=== PATIENT | female | born 1965 | race Caucasian/White ===

== ENCOUNTER 2025-01-24 10:13 | Inpatient (IN) ==
[2025-01-24] MEDS: SODIUM CHLORIDE 0.9% 1,000 ML IV ONE ×2 (10:58→12:59)
[2025-01-24] MEDS: FAMOTIDINE 20MG IV PUSH 20 MG/5 ML SYR IV STA (10:58)
[2025-01-24] MEDS: METOCLOPRAMIDE HCL INJ 5 MG/ML 2 ML VIAL IV ONE (11:06)
[2025-01-24] MEDS: PANTOprazole 40 MG/10 ML SYR IV ONE (11:07)
[2025-01-24] MEDS: ACETAMINOPHEN 1,000 MG/100 ML VIAL IV STA (11:09)
[2025-01-24 11:24] LABS: Appearance Urine Cloudy (Clear); Glucose Urine UA Trace (Negative)
[2025-01-24 11:31] LABS: Alanine Aminotransferase 83 U/L (7-52); Albumin Globulin Ratio 1.1 (0.9-2); Alkaline Phosphatase 103 U/L (34-104); Anion Gap 15 (3-11); Bilirubin,Total 4.4 mg/dl (0.2-1.0); Blood Urea Nitrogen 24 mg/dl (6-23); Calcium 9.1 mg/dl (8.6-10.3); Carbon Dioxide 23 mmol/L (21-32); Chloride 95 mmol/L (98-107); Globulin 3.2 gm/dl (2.5-4.0); Glucose 173 mg/dl (70-99(Fasting)); Lipase 24 U/L (11-82); Magnesium 1.7 mg/dl (1.7-2.4); Potassium 3.2 mmol/L (3.5-5.1); Sodium 133 mmol/L (136-145); Total Protein 6.6 gm/dl (6.0-8.3)
[2025-01-24 11:38] LABS: Hematocrit (blood only) 44.5 % (37.0-47.0); Hemoglobin 15.7 g/dl (12.0-16.0); Mean Corpuscular Hemoglobin 34.4 pg (25.0-34.0); Mean Corpuscular Volume 97.6 fL (80.0-100.0); Platelet Count 77 K/uL (130-400); RDW Standard Deviation 49.3 fL (36.4-46.3); Red Blood Count 4.56 M/uL (4.20-5.40); White Blood Count 6.62 K/ul (4.8-10.8)
[2025-01-24 11:40] LABS: INR 1.2 (0.9-1.1); Prothrombin Time 12.4 Seconds (9.0-12.0)
[2025-01-24 11:52] LABS: Immature Granulocytes # (auto) 0.11 K/uL (0.01-0.20); Immature Granulocytes % (auto) 1.7 %; Toxic Vacuolation 3+
[2025-01-24 11:57] LABS: Anaplasmosis Smear(Rpt to DOH) Pos for Anaplasma
[2025-01-24] MEDS: OPTIRAY 320 100ml IV ONE (12:00)
--- NOTE | 2025-01-24 12:28 | Emergency Department Note ---
Impression & Plan Nausea & vomiting, Abdominal pain, Diarrhea, Anaplasmosis ED Provider Note ED Provider Note NAME: CHEYENNE BOND AGE:59 SEX: Female : 1965 ARRIVES VIA: private vehicle INFORMANT: Patient ED PROVIDER(s): Kati Louis DO CHIEF COMPLAINT: nausea, vomiting, diarrhea, abdominal pain HPI: This is a 59-year-old female who presents emerged from due to concern for nausea, vomiting, diarrhea, and abdominal pain which began on Monday. Patient states she has been trying to take small sips of water but after about an hour she will vomit up the water and phlegm from her stomach. She states she has generalized abdominal pain. She states she is having 2 or 3 episodes of diarrhea daily. She states she had tried using Pepto-Bismol and since then her stools have been black. No overt blood noted. She denies any recent known sick contacts, recent travel, change in diet, or change in medications. Patient does have a prior history of significant diverticulitis which required partial colectomy. PAST MEDICAL HISTORY:See Below PAST SURGICAL HISTORY:See Below FAMILY HISTORY:See Below SOCIAL HISTORY:See Below HOME MEDICATIONS:See Below ALLERGIES:See Below VITALS:See Below PHYSICAL EXAMINATION: GENERAL: alert, unwell appearing, well nourished, no distress, non-toxic EYE EXAM: normal conjunctiva, PERRL and EOM's grossly intact OROPHARYNX: no exudate, no erythema, lips, buccal mucosa, and tongue normal and mucous membranes are dry. NECK: supple, no nuchal rigidity, no adenopathy, non-tender LUNGS: Clear to auscultation. Normal chest wall mechanics, no w/r/r HEART: no murmurs, S1 normal and S2 normal ABDOMEN: abdomen soft, generalized discomfort with palpation, normo-active bowel sounds, no masses, no rebound or guarding. SKIN: no rashes, petechiae, orbruising UPPER EXTREMITIES: upper extremities are grossly normal. FROM, nml pulses b/l. LOWER EXTREMITIES: No pitting edema. FROM, nml pulses b/l. NEURO EXAM: Normal sensorium, cranial nerves II-XII grossly intact, normal speech, no facial droop,nogross weakness of arms, no gross weakness of legs. Gross sensation intact. No ataxia. Vital Signs: reviewed and remarkable Differential Diagnosis: Viral syndrome, foodborne illness, medication ADR, dehydration, electrolyte abnormality, SBO, colitis, mesenteric ischemia, gastroparesis, perforation, DKA, as well as others were considered MEDICAL DECISION MAKING: This is a 59-year-old female presents emerged department after several days of abdominal pain, nausea, vomiting, and diarrhea. She was concern for dehydration as well as etiology of her symptoms. She was afebrile and hemodynamically stable on arrival did not feel markedly clinically dehydrated. Labs drawn and sent, IV established, EKG performed at bedside interpreted by me and patient monitored on telemetry. Patient started on IV fluids additionally. Patient noted to have elevated lactic acid, although this was downtrending on repeat after IV fluids. Due to concern for comorbid conditions and persistent symptoms as well as abnormal labs, she was sent for CT of the abdomen pelvis additionally. Patient noted to have mild diverticulitis. Of note patient also positive for anaplasmosis. Patient started on IV antibiotics for both. Case discussed with hospitalist team for additional evaluation and management. Patient did report feeling improved following IV fluids, IV tylenol, IV Reglan, IV Pepcid, IV pantoprazole. She was given potassium and magnesium repletion additionally as her levels were low normal. Stool cultures added as a precaution and were pending at the time of discussion with the hospitalist team. Consultation(s): 1350: Discussed with Dr. Soto, [place] hospitalist team, for additional evaluation and mgmt. ER Treatment Provided: See below Diagnostics Interpreted By Me: -ECG: sinus tachycardia at 123, nml axis, nml intervals, no acute ST/T wave changes -Cardiac Monitoring: An order was placed for continuous cardiac monitoring. The monitor shows a rate of 108 with sinus tachycardia rhythm. -Laboratory studies: As stated above and show below. -Imaging studies: ct a/p - no sbo, no perf Triage Nursing Note Reviewed Prior/Outside Records Reviewed Past Med/Surg History Problem List (Updated 01/25/25 @ 13:02 by Jero Meza DO) Hypokalemia Anaplasmosis (Acute) Diarrhea (Acute) Abdominal pain (Acute) Nausea & vomiting (Acute) Nondisplaced fracture of proximal end of fibula (06/04/24) Acute to subacute nondisplaced proximal left fibular fracture from a fall on a cat toy per the provider note dated 06/10/24 Hyperlipidemia Oropharyngeal mass Smoking greater than 40 pack years Abdominal pain Diarrhea DM2 (diabetes mellitus, type 2) Lymphocytic colitis Hypertension Breast cancer, right Initial diagnosis 1998 Medical History Abnormal mammogram of right breast Osteopenia Repeat DEXA December 2024 History of breast cancer dx'd 1998. surgery + radiation History of migraine headaches Borderline hyperlipidemia HTN (hypertension) History of diverticulitis Surgical History History of surgery on upper extremity LUE x 2 History of lumpectomy Rt History of bowel resection History of colonoscopy Last Colonoscopy 09/07/22 History of delivery Family History Mother Alzheimer disease Father Prostate cancer Heart disease Aunt Breast cancer Other No family history of adverse response to anesthesia No family history of bleeding disorder Denies family history of Ovarian cancer Myocardial infarction Lung cancer Colorectal cancer Social History Smoking Status: Current every day smoker Tobacco Type: Cigarettes Age Started Using Tobacco: 17; packs per day: 0.5; Cigarettes Per Day: 10; Second Hand Exposure: No; Do You Dip or Chew Tobacco: No; Hx Alcohol Use: Yes Alcohol type: hard liquor Alcohol Intake Frequency Comment: daily Hx Substance Use: Yes Prescribed Medications: Marijuana Last Used Substance: Days (ago) Preferred Language: Turkish Communication Ability: Effective Visual Impairment: Diminished Hearing Ability: Normal Advanced Practice Nurse Psychotherapist Required: No Beliefs That Will Affect Care: None marital status: Single Current Living Situation: Alone current occupational status: employed How many Children do You have: 1 Feels Safe at Home: Yes Safety Concerns: Feels Safe At This Time Childhood Exposure to Second-Hand Smoke: Yes Diet: regular caffeine: No Dental Care, Regularly: Yes Physical Activity Frequency: Does not Exercise Seatbelt Use: always Sunscreen Use: Yes Assistive Devices: Glasses Allergies Allergies Allergy/AdvReac Type Severity Reaction Status Date / Time anti nausea medication Allergy "made me Uncoded 09/27/24 09:50 more sick" dry heaves, vomiting Home Meds Home Medications Medication Instructions Recorded Confirmed amoxicillin 500 mg capsule 2,000 mg PO ONCE PRN dental appt 07/28/22 01/24/25 Primal Mind Fuel 1 dose PO QAM 09/02/22 01/24/25 calcium 600 mg (as 1 tab PO QAM 09/02/22 01/24/25 carbonate)-vitamin D3 5 mcg (200 unit) tablet cholecalciferol (vitamin D3) 50 2,000 unit PO DAILY 10/25/23 01/24/25 mcg (2,000 unit) capsule hydrochlorothiazide 25 mg tablet 25 mg PO DAILY 01/24/25 01/24/25 Previous Rx's Medication Instructions Recorded beta carotene 30 mg capsule 30 mg PO DAILY #30 caps 10/20/22 potassium citrate 99 mg capsule 99 mg PO DAILY #30 caps 10/20/22 vitamin E (dl, acetate) 180 mg 360 mg (2 x 180 mg (400 unit)) PO 10/20/22 (400 unit) capsule DAILY #30 caps albuterol sulfate 90 mcg/actuation 2 puff inhalation QID PRN 07/22/24 aerosol inhaler shortness of breath or wheezing #8.5 grams budesonide 3 mg 9 mg (3 x 3 mg) PO DAILY #90 ea 12/02/24 capsule,delayed,extended release Results & Data (ED) Vital Signs Vital Signs - 24 hr 01/24/25 10:17 01/24/25 10:42 01/24/25 10:54 Temperature 36.3 C L Temperature Source Temporal Artery Scan Pulse Rate 128 H 128 H 126 H Pulse Rate [Apical] Pulse Rate from SpO2 Sensor 128 H Respiratory Rate 16 19 20 Respiratory Effort / Characteristics Non-Labored Spontaneous Respiratory Depth Normal Respiratory Pattern Blood Pressure 113/76 Blood Pressure [Right Arm] Blood Pressure Mean 88 Blood Pressure Mean [Right Arm] Blood Pressure Position [Right Arm] Pulse Oximetry 100 97 Oxygen Delivery Method Room Air Room Air Sepsis Recent Fever Within 48 Hours No Sepsis New/Unexplained Change in Mental Status No Sepsis Action Taken by Nursing No Action Required 01/24/25 11:12 01/24/25 11:14 01/24/25 11:19 Temperature Temperature Source Pulse Rate 119 H Pulse Rate [Apical] Pulse Rate from SpO2 Sensor Respiratory Rate Respiratory Effort / Characteristics Respiratory Depth Respiratory Pattern Blood Pressure 114/74 Blood Pressure [Right Arm] Blood Pressure Mean 98 Blood Pressure Mean [Right Arm] Blood Pressure Position [Right Arm] Pulse Oximetry Oxygen Delivery Method Room Air Sepsis Recent Fever Within 48 Hours Sepsis New/Unexplained Change in Mental Status Sepsis Action Taken by Nursing 01/24/25 11:24 01/24/25 11:30 01/24/25 12:27 Temperature Temperature Source Pulse Rate 118 H 120 H 108 H Pulse Rate [Apical] Pulse Rate from SpO2 Sensor Respiratory Rate 20 27 H 26 H Respiratory Effort / Characteristics Respiratory Depth Respiratory Pattern Blood Pressure Blood Pressure [Right Arm] Blood Pressure Mean Blood Pressure Mean [Right Arm] Blood Pressure Position [Right Arm] Pulse Oximetry Oxygen Delivery Method Sepsis Recent Fever Within 48 Hours Sepsis New/Unexplained Change in Mental Status Sepsis Action Taken by Nursing 01/24/25 12:33 01/24/25 12:38 01/24/25 13:00 Temperature Temperature Source Pulse Rate 108 H 109 H Pulse Rate [Apical] 108 H Pulse Rate from SpO2 Sensor 109 H Respiratory Rate 22 15 21 Respiratory Effort / Characteristics Non-Labored Spontaneous Respiratory Depth Normal Respiratory Pattern Regular Blood Pressure Blood Pressure [Right Arm] 131/71 Blood Pressure Mean Blood Pressure Mean [Right Arm] 91 Blood Pressure Position [Right Arm] Semi-fowlers Pulse Oximetry 98 98 Oxygen Delivery Method Room Air Room Air Sepsis Recent Fever Within 48 Hours Sepsis New/Unexplained Change in Mental Status Sepsis Action Taken by Nursing 01/24/25 13:00 01/24/25 13:33 01/24/25 13:48 Temperature Temperature Source Pulse Rate 111 H 106 H Pulse Rate [Apical] Pulse Rate from SpO2 Sensor Respiratory Rate 19 25 H Respiratory Effort / Characteristics Respiratory Depth Respiratory Pattern Blood Pressure 153/75 H Blood Pressure [Right Arm] Blood Pressure Mean 120 Blood Pressure Mean [Right Arm] Blood Pressure Position [Right Arm] Pulse Oximetry Oxygen Delivery Method Sepsis Recent Fever Within 48 Hours Sepsis New/Unexplained Change in Mental Status Sepsis Action Taken by Nursing 01/24/25 14:05 01/24/25 14:06 Temperature Temperature Source Pulse Rate 106 H Pulse Rate [Apical] Pulse Rate from SpO2 Sensor 108 H Respiratory Rate 20 Respiratory Effort / Characteristics Respiratory Depth Respiratory Pattern Blood Pressure 148/102 H Blood Pressure [Right Arm] Blood Pressure Mean 133 Blood Pressure Mean [Right Arm] Blood Pressure Position [Right Arm] Pulse Oximetry 97 Oxygen Delivery Method Room Air Sepsis Recent Fever Within 48 Hours Sepsis New/Unexplained Change in Mental Status Sepsis Action Taken by Nursing Laboratory Data 01/25/25 06:34 01/25/25 06:34 Lab Results 01/24/25 01/24/25 01/24/25 Range/Units 10:55 12:48 14:28 WBC 6.62 (4.8-10.8) K/ul RBC 4.56 (4.20-5.40) M/uL Hgb 15.7 (12.0-16.0) g/dl Hct 44.5 (37.0-47.0) % MCV 97.6 (80.0-100.0) fL MCH 34.4 H (25.0-34.0) pg MCHC 35.3 (32.0-36.0) g/dL RDW Std Deviation 49.3 H (36.4-46.3) fL RDW Coeff of Bindu 13.6 (11.5-14.5) % Plt Count 77 L (130-400) K/uL MPV 11.1 (9.4-12.4) fL Immature Gran % (Auto) 1.7 % Neut % (Auto) 90.9 % Lymph % (Auto) 3.5 % [place] % (Auto) 2.6 % Eos % (Auto) 0.2 % Baso % (Auto) 1.1 % Neut # (Auto) 6.03 (1.40-6.50) K/uL Lymph # (Auto) 0.23 L (1.20-3.40) K/uL [place] # (Auto) 0.17 (0.11-0.59) K/uL Eos # (Auto) 0.01 (0.00-0.50) K/uL Baso # (Auto) 0.07 (0.00-0.20) K/uL Immature Gran # (Auto) 0.11 (0.01-0.20) K/uL Toxic Vacuolation 3+ PT 12.4 H (9.0-12.0) Seconds INR 1.2 H (0.9-1.1) Sodium 133 L 131 L (136-145) mmol/L Potassium 3.2 L 3.4 L (3.5-5.1) mmol/L Chloride 95 L 100 (98-107) mmol/L Carbon Dioxide 23 21 (21-32) mmol/L Anion Gap 15 H 10 (3-11) BUN 24 H 19 (6-23) mg/dl Creatinine 1.10 0.73 D (0.6-1.2) mg/dl Est Cr Clr Drug Dosing Not Reportable 73.2 eGFR 57.52 94.09 BUN/Creatinine Ratio 21.8 H 26.0 H (10-20) Glucose 173 H 195 H (70-99(Fasting)) mg/dl Lactate 3.6 H* 2.2 H* (0.4-2.0) mmol/L Calcium 9.1 7.6 L (8.6-10.3) mg/dl Magnesium 1.7 (1.7-2.4) mg/dl Total Bilirubin 4.4 H 3.6 H (0.2-1.0) mg/dl AST 115 H 89 H (13-39) U/L ALT 83 H 65 H (7-52) U/L Alkaline Phosphatase 103 75 (34-104) U/L Total Protein 6.6 5.3 L (6.0-8.3) gm/dl Albumin 3.4 3.1 L (3.4-5.0) gm/dl Globulin 3.2 2.2 L (2.5-4.0) gm/dl Albumin/Globulin Ratio 1.1 1.4 (0.9-2) Lipase 24 (11-82) U/L Urine Color Maia Urine Appearance Cloudy A (Clear) Urine pH 5.0 (4.5-7.5) Ur Specific [place] 1.025 (1.000-1.030) Urine Protein 2+ H (Negative) Urine Glucose (UA) Trace H (Negative) Urine Ketones 1+ H (Negative) Urine Blood Negative (Negative) Urine Nitrite Negative (Negative) Urine Bilirubin 3+ H (Negative) Urine Urobilinogen Positive H (Negative) Ur Leukocyte Esterase Negative (Negative) Urine RBC 0-2 (0-2) /hpf Urine WBC 0-5 (0-5) /hpf Ur Epithelial Cells 11-20 H (0-2) /hpf Amorphous Sediment Present A (None Prsent) Urine Bacteria 1+ H (None Seen) Urine Comment Anaplasma Smear See Comment A Anaplasma Comment Pos for Anaplasma Administered Medications Acetaminophen (Acetaminophen 325 Mg Tab) 650 mg PO Q4H PRN PRN Reason: pain/fever Stop: 02/23/25 15:32 Last Admin: 01/25/25 12:50 Dose: 650 mg Documented By: Admin: 01/24/25 23:58 Dose: 650 mg Documented By: TELLO Budesonide (Budesonide Ec 3 Mg Cap) 9 mg PO DAILY BRADY Stop: 02/24/25 08:59 Last Admin: 01/25/25 08:23 Dose: 9 mg Documented By: TIERNEY Calcium/Vitamin D (Calcium 600mg + Vit D 400 Iu Tab) 1 tab PO QAM BRADY Stop: 02/24/25 08:59 Last Admin: 01/25/25 08:23 Dose: 1 tab Documented By: TIERNEY Lactated Ringer's (Lr) 1,000 mls @ 125 mls/hr IV .Q8H BRADY Stop: 01/27/25 15:32 Last Admin: 01/25/25 16:13 Dose: 125 mls/hr Documented By: Infusion: 01/25/25 16:10 Dose: Infused Documented By: Admin: 01/25/25 08:10 Dose: 125 mls/hr Documented By: Infusion: 01/25/25 07:58 Dose: Infused Documented By: Admin: 01/24/25 23:58 Dose: 125 mls/hr Documented By: Infusion: 01/24/25 23:54 Dose: Infused Documented By: Admin: 01/24/25 15:54 Dose: 125 mls/hr Documented By: JHONATAN Famotidine (Pepcid 20mg Iv Push) 20 mg in 5 mls @ 2.5 mls/min IV Q12H BRADY Stop: 02/23/25 22:59 Last Admin: 01/25/25 10:30 Dose: 2.5 mls/min Documented By: Admin: 01/24/25 22:47 Dose: 2.5 mls/min Documented By: TELLO Polyethylene Glycol (Polyethylene (Miralax) 17 Gm Pack) 17 gm PO DAILY BRADY Stop: 02/24/25 11:44 Last Admin: 01/25/25 12:55 Dose: 17 gm Documented By: TIERNEY Vitamin D (Cholecalciferol 25 Mcg (1000 Units) Tab) 50 mcg PO DAILY BRADY Stop: 02/24/25 08:59 Last Admin: 01/25/25 08:23 Dose: 50 mcg Documented By: RRAlisha Discontinued Medications Sodium Chloride (Nss) 1,000 mls @ 999 mls/hr IV .Q1H1M ONE Stop: 01/24/25 11:31 Last Infusion: 01/24/25 12:39 Dose: Infused Documented By: Admin: 01/24/25 10:58 Dose: 999 mls/hr Documented By: JEWEL Famotidine (Pepcid 20mg Iv Push) 20 mg in 5 mls @ 2.5 mls/min IV NOW STA Stop: 01/24/25 10:32 Last Admin: 01/24/25 10:58 Dose: 2.5 mls/min Documented By: JEWEL Pantoprazole Sodium (Protonix) 40 mg in 10 mls @ 5 mls/min IV NOW ONE Stop: 01/24/25 11:01 Last Admin: 01/24/25 11:07 Dose: 5 mls/min Documented By: JEWEL Acetaminophen (Ofirmev) 1,000 mg in 100 mls @ 400 mls/hr IV NOW STA Stop: 01/24/25 11:14 Last Infusion: 01/24/25 12:04 Dose: Infused Documented By: Admin: 01/24/25 11:09 Dose: 400 mls/hr Documented By: JEWEL Sodium Chloride (Nss) 1,000 mls @ 999 mls/hr IV .Q1H1M ONE Stop: 01/24/25 13:23 Last Infusion: 01/24/25 14:08 Dose: Infused Documented By: Admin: 01/24/25 12:59 Dose: 999 mls/hr Documented By: JEWEL Ampicillin Sodium/Sulbactam Sodium (Unasyn) 3,000 mg in 100 mls @ 200 mls/hr IV NOW STA Stop: 01/24/25 13:18 Last Infusion: 01/24/25 15:17 Dose: Infused Documented By: Admin: 01/24/25 14:42 Dose: 200 mls/hr Documented By: JEWEL Doxycycline Hyclate 100 mg/ (Dextrose) 100 mls @ 50 mls/hr IV NOW STA Stop: 01/24/25 14:52 Last Infusion: 01/24/25 16:59 Dose: Infused Documented By: Infusion: 01/24/25 15:56 Dose: Infused Documented By: Admin: 01/24/25 14:49 Dose: 50 mls/hr Documented By: JEWEL Magnesium Sulfate/Dextrose (Magnesium Sulfate / D5w) 1 gm in 100 mls @ 100 mls/hr IV NOW STA Stop: 01/24/25 14:09 Last Infusion: 01/24/25 14:30 Dose: Infused Documented By: Admin: 01/24/25 13:30 Dose: 100 mls/hr Documented By: JEWEL Sodium Chloride (Nss) 1,000 mls @ 125 mls/hr IV .Q8H BRADY Stop: 01/27/25 14:14 Last Infusion: 01/24/25 16:03 Dose: Infused Documented By: Admin: 01/24/25 14:39 Dose: 125 mls/hr Documented By: JEWEL Doxycycline Hyclate 100 mg/ (Dextrose) 100 mls @ 50 mls/hr IV BID BRADY Stop: 02/07/25 20:59 Last Infusion: 01/25/25 10:23 Dose: Infused Documented By: Admin: 01/25/25 08:22 Dose: 50 mls/hr Documented By: Infusion: 01/24/25 22:47 Dose: Infused Documented By: Admin: 01/24/25 20:49 Dose: 50 mls/hr Documented By: TELLO Ioversol (Optiray 320 100ml) 94 ml IV ONCE ONE Stop: 01/24/25 11:59 Last Admin: 01/24/25 12:00 Dose: 94 ml Documented By: MOIRA Metoclopramide HCl (Metoclopramide Hcl Inj 5 Mg/Ml 2 Ml Vial) 5 mg IV ONE ONE Stop: 01/24/25 11:01 Last Admin: 01/24/25 11:06 Dose: 5 mg Documented By: JEWEL Potassium Chloride (Potassium Chloride Crtab 20 Meq Tabcr) 40 meq PO NOW STA Stop: 01/24/25 13:11 Last Admin: 01/24/25 13:28 Dose: 40 meq Documented By: JEWEL Potassium Chloride (Potassium Chloride 10 Meq Tabcr) 40 meq PO NOW STA Stop: 01/25/25 07:38 Last Admin: 01/25/25 09:10 Dose: 40 meq Documented By: TIERNEY Imaging Data Radiologist's Impression: Abdomen/Pelvis CT 01/24/25 11:36 HISTORY: Abdominal pain. Back pain. Weakness, nausea, and vomiting. TECHNIQUE: Helical CT imaging of the abdomen and pelvis was performed with contrast. Images are presented in axial, sagittal, and coronal reformats. COMPARISON: CT of the abdomen pelvis with contrast dated 12/28/2018. FINDINGS: Lung Bases/Inferior Mediastinum: Mild atelectasis involving the lingula. Lung bases are otherwise clear. Liver: Mild hepatic steatosis.Mild hepatomegaly with liver measuring 19 cm in craniocaudal dimension. Gallbladder: Unremarkable Spleen: Unremarkable Adrenals: Unremarkable Pancreas: Unremarkable Kidneys: Unremarkable Stomach/Bowel: Distal esophagus, stomach, and duodenum are unremarkable. The small bowel loops are normal in caliber. Normal caliber appendix. Colonic diverticulosis. Mild inflammation along the proximal sigmoid colon consistent with mild acute diverticulitis. No evidence of perforation or abscess. Postsurgical changes of the colon with sigmoid colon anastomosis. Lymph nodes: Unremarkable Vasculature: No abdominal aortic aneurysm. Mild atherosclerotic vascular disease. Pelvis: Urinary bladder demonstrates mild wall thickening and inflammation. Uterus and ovaries are unremarkable. Soft Tissues: Unremarkable Bones: Degenerative changes of the hips and pelvis.Mild degenerative changes of the spine. No acute osseous abnormality. IMPRESSION: * Mild acute diverticulitis involving the sigmoid colon. No evidence of perforation or abscess. * Hepatic steatosis and mild hepatomegaly. * Circumferential bladder wall thickening with mild inflammation could represent acute cystitis. Recommend correlation with urinalysis. * Additional chronic and/or incidental findings as detailed above. ACT 112: Positive. There are findings on this exam that require communication between the performing entity and the patient following Patient Test Result Information Act ([place] ACT 112) guidelines. Electronically signed by Jero Stanford 01-24-2025 12:34 PM Discharge Plan Visit Data Chief Complaint: Weakness Stated Complaint: CAN'T EAT,WEAKNESS ED Provider: Kati Louis Discharge Problem: Nausea & vomiting, Abdominal pain, Diarrhea, Anaplasmosis Patient Disposition: Admitted As Inpatient Condition: Fair Discharge Instructions Interventions: ED Discharge Assessment Last Done: 01/24/25 15:19
--- NOTE | 2025-01-24 12:34 | CT Scan Report ---
HISTORY: Abdominal pain. Back pain. Weakness, nausea, and vomiting. TECHNIQUE: Helical CT imaging of the abdomen and pelvis was performed with contrast. Images are presented in axial, sagittal, and coronal reformats. COMPARISON: CT of the abdomen pelvis with contrast dated 12/28/2018. FINDINGS: Lung Bases/Inferior Mediastinum: Mild atelectasis involving the lingula. Lung bases are otherwise clear. Liver: Mild hepatic steatosis.Mild hepatomegaly with liver measuring 19 cm in craniocaudal dimension. Gallbladder: Unremarkable Spleen: Unremarkable Adrenals: Unremarkable Pancreas: Unremarkable Kidneys: Unremarkable Stomach/Bowel: Distal esophagus, stomach, and duodenum are unremarkable. The small bowel loops are normal in caliber. Normal caliber appendix. Colonic diverticulosis. Mild inflammation along the proximal sigmoid colon consistent with mild acute diverticulitis. No evidence of perforation or abscess. Postsurgical changes of the colon with sigmoid colon anastomosis. Lymph nodes: Unremarkable Vasculature: No abdominal aortic aneurysm. Mild atherosclerotic vascular disease. Pelvis: Urinary bladder demonstrates mild wall thickening and inflammation. Uterus and ovaries are unremarkable. Soft Tissues: Unremarkable Bones: Degenerative changes of the hips and pelvis.Mild degenerative changes of the spine. No acute osseous abnormality. IMPRESSION: * Mild acute diverticulitis involving the sigmoid colon. No evidence of perforation or abscess. * Hepatic steatosis and mild hepatomegaly. * Circumferential bladder wall thickening with mild inflammation could represent acute cystitis. Recommend correlation with urinalysis. * Additional chronic and/or incidental findings as detailed above. ACT 112: Positive. There are findings on this exam that require communication between the performing entity and the patient following Patient Test Result Information Act ([place] ACT 112) guidelines. Electronically signed by Jero Stanford 01-24-2025 12:34 PM
[2025-01-24] MEDS: POTASSIUM CHLORIDE CRTAB 20 MEQ TABCR PO STA (13:28)
[2025-01-24] MEDS: MAGNESIUM SULFATE / D5W 1 GM/100 ML BAG IV STA (13:30)
--- NOTE | 2025-01-24 14:37 | History & Physical Report ---
Date of Service January 24, 2025 Assessment & Plan (1) Anaplasmosis: (2) Lymphocytic colitis: Plan #Anaplasmosisseems to be the driving factor of her illness. Doxycycline 100 mg IV every 12 hours until she is able to take p.o., then transition to p.o. IV fluids/IV antiemetics/supportive care given that she is feeling so lousy. Discussed with patient I anticipate improvement over probably 24-72 hours and we will anticipate discharge once she is feeling better/eating and drinking well enough to go home #abnormal CT scanCT scan consistent with mild acute diverticulitis, however, her history/symptoms, and physical exam are not. We discussed the risks and benefits of treating for what the CT shows versus treating her and what her symptoms and exam fit withand after careful discussion we both agreed that watchful waiting makes the most sense. I suspect it is simply a false positive CT scan, but we both discussed that if her symptoms were to localize to the left side of her abdomen, it would be very easy to get on appropriate broader antibiotic coverage essentially BERTIN. At the same time, putting her on antibiotics needlessly if this is all due to the anaplasmosis (which is what it appears consistent with) would cause more harm than benefit by a lot. Given her prior episodes of diverticulitis as well as her lymphocytic colitis, as well as current dehydration, she certainly has several reasons for a false positive CT scan. Continue to follow her symptoms, serial exams. #Lymphocytic colitiscontinue budesonide #thrombocytopenia, elevated bilirubin, transaminitisall certainly could acutely fit with anaplasmosis, and I suspect it does. Obviously we would want to trend her numbers back to normal #DVT prophylaxisambulation and SCDs (considered pharmacologic, with platelets of 77 it is an option, but at the same time hopefully she will be ambulatory enough, and is young enough, that pharmacologic may not be necessaryobviously follow her clinical course and readjust the plan as necessary) History of Present Illness Chief Complaint: sick, weak, vomiting. Primary Care Provider: Sebastián Richardson DO Patient is a very pleasant 59-year-old female who notes that on Monday she started feeling fairly sickover the last few days it has progressed to feeling sick and very weak all over like she can barely get up, as well as a lot of nausea vomiting poor p.o. intake and diffuse abdominal pain. She initially thought she probably had some sort of viral illness and was trying to wait it out at home, but as she continued to feel worse she felt to overt need to be evaluatedcame to the ER and was found to have lab findings quite consistent with anaplasmosis, including a positive peripheral smear. She also had a CT of her abdomen and pelvis that showed findings potentially consistent with mild diverticulitis, but she does not have the same sort of left flank pain that she has had with prior episodes of diverticulitis. Allergies Allergy/AdvReac Type Severity Reaction Status Date / Time anti nausea medication Allergy "made me Uncoded 09/27/24 09:50 more sick" dry heaves, vomiting Home Medications Medication Instructions Recorded Confirmed Type amoxicillin 500 mg capsule 2,000 mg PO ONCE PRN dental appt 07/28/22 01/24/25 History Primal Mind Fuel 1 dose PO QAM 09/02/22 01/24/25 History calcium 600 mg (as 1 tab PO QAM 09/02/22 01/24/25 History carbonate)-vitamin D3 5 mcg (200 unit) tablet beta carotene 30 mg capsule 30 mg PO DAILY #30 caps 10/20/22 01/24/25 Rx potassium citrate 99 mg capsule 99 mg PO DAILY #30 caps 10/20/22 01/24/25 Rx vitamin E (dl, acetate) 180 mg 360 mg (2 x 180 mg (400 unit)) PO 10/20/22 01/24/25 Rx (400 unit) capsule DAILY #30 caps cholecalciferol (vitamin D3) 50 2,000 unit PO DAILY 10/25/23 01/24/25 History mcg (2,000 unit) capsule albuterol sulfate 90 mcg/actuation 2 puff inhalation QID PRN 07/22/24 01/24/25 Rx aerosol inhaler shortness of breath or wheezing #8.5 grams budesonide 3 mg 9 mg (3 x 3 mg) PO DAILY #90 ea 12/02/24 01/24/25 Rx capsule,delayed,extended release hydrochlorothiazide 25 mg tablet 25 mg PO DAILY 01/24/25 01/24/25 History Past Med/Surg History Problem List Anaplasmosis (Acute) Diarrhea (Acute) Abdominal pain (Acute) Nausea & vomiting (Acute) Nondisplaced fracture of proximal end of fibula (06/04/24) Acute to subacute nondisplaced proximal left fibular fracture from a fall on a cat toy per the provider note dated 06/10/24 Hyperlipidemia Oropharyngeal mass Smoking greater than 40 pack years Abdominal pain Diarrhea DM2 (diabetes mellitus, type 2) Lymphocytic colitis Hypertension Breast cancer, right Initial diagnosis 1998 Medical History Abnormal mammogram of right breast Osteopenia Repeat DEXA December 2024 History of breast cancer dx'd 1998. surgery + radiation History of migraine headaches Borderline hyperlipidemia HTN (hypertension) History of diverticulitis Surgical History History of surgery on upper extremity LUE x 2 History of lumpectomy Rt History of bowel resection History of colonoscopy Last Colonoscopy 09/07/22 History of delivery Family History Mother Alzheimer disease Father Prostate cancer Heart disease Aunt Breast cancer Other No family history of adverse response to anesthesia No family history of bleeding disorder Denies family history of Ovarian cancer Myocardial infarction Lung cancer Colorectal cancer Social History Smoking Status: Current every day smoker Tobacco Type: Cigarettes Age Started Using Tobacco: 17; packs per day: 0.5; Cigarettes Per Day: 10; Second Hand Exposure: No; Do You Dip or Chew Tobacco: No; Hx Alcohol Use: Yes Alcohol type: hard liquor Alcohol Intake Frequency Comment: daily Hx Substance Use: Yes Prescribed Medications: Marijuana Last Used Substance: Days (ago) Preferred Language: American Communication Ability: Effective Visual Impairment: Diminished Hearing Ability: Normal 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 Beliefs That Will Affect Care: None marital status: Single Current Living Situation: Alone current occupational status: employed How many Children do You have: 1 Feels Safe at Home: Yes Childhood Exposure to Second-Hand Smoke: Yes Diet: regular caffeine: No Dental Care, Regularly: Yes Physical Activity Frequency: Does not Exercise Seatbelt Use: always Sunscreen Use: Yes Assistive Devices: Glasses Review of Systems Review of Systems: All systems reviewed & are unremarkable except as noted in HPI & below Physical Exam Physical Exam: In general she is awake alert oriented fatigued but pleasant and in no acute distress. HEENT normocephalic atraumatic mucous membranes moist. Cardio is slightly tachycardic without rubs murmurs or gallops. Lungs are clear slightly diminished no rales rhonchi or wheezes. Abdomen soft moderately distended mild to moderate diffuse tenderness with no real focal area no guarding rebound or rigidity. Definitely no dominance of left lower quadrant tenderness. Extremities are without sinus clubbing or edema, mild muscular calf tenderness equal bilaterally with no edema, cords, or focal tenderness. Neuro shows cranial nerves II through XII be grossly intact gross motor and sensory intact. Results & Data Results & Data Vital Signs (Past 12 Hours) Vital Signs Temp Pulse Pulse Resp BP BP Pulse Ox 01/24/25 14:06 106 H 20 97 01/24/25 14:05 148/102 H 01/24/25 13:48 106 H 25 H 01/24/25 13:33 111 H 19 01/24/25 13:00 153/75 H 01/24/25 13:00 109 H 21 98 01/24/25 12:38 108 H 15 131/71 98 01/24/25 12:33 108 H 22 01/24/25 12:27 108 H 26 H 01/24/25 11:30 120 H 27 H 01/24/25 11:24 118 H 20 01/24/25 11:19 119 H 01/24/25 11:14 01/24/25 11:12 114/74 01/24/25 10:54 126 H 20 01/24/25 10:42 128 H 19 97 01/24/25 10:17 97.3 F L 128 H 16 113/76 100 O2 Del Method 01/24/25 14:06 Room Air 01/24/25 14:05 01/24/25 13:48 01/24/25 13:33 01/24/25 13:00 01/24/25 13:00 Room Air 01/24/25 12:38 Room Air 01/24/25 12:33 01/24/25 12:27 01/24/25 11:30 01/24/25 11:24 01/24/25 11:19 01/24/25 11:14 Room Air 01/24/25 11:12 01/24/25 10:54 01/24/25 10:42 Room Air 01/24/25 10:17 Room Air Code Status & VTE Plan VTE Prophylaxis Plan VTE Prophylaxis will be ordered: Yes PG Care Time/CCT Total # of Minutes Spent Total Time Spent with Patient: Total time spent is greater than 50% in coordination of care (as documented) at patient's floor/unit and/or counseling patient: Coding Level of Care Code 76853 INT INP/OBS CARE 3/75MIN Diagnoses Anaplasmosis A77.49 Lymphocytic colitis K52.832
[2025-01-24] MEDS: SODIUM CHLORIDE 0.9% 1,000 ML IV SCH (14:39)
[2025-01-24] MEDS: AMPICILLIN/SULBACTAM SOD 3,000 MG/100 ML BAG IV STA (14:42)
[2025-01-24] MEDS: DOXYCYCLINE HYCLATE 100 MG in DEXTROSE 5% MINI-B 100 ML IV STA (14:49)
[2025-01-24 15:08] LABS: Alanine Aminotransferase 65.0 U/L (7-52); Albumin Globulin Ratio 1.4 (0.9-2); Alkaline Phosphatase 75.0 U/L (34-104); Anion Gap 10.0 (3-11); Bilirubin,Total 3.6 mg/dl (0.2-1.0); Blood Urea Nitrogen 19.0 mg/dl (6-23); Calcium 7.6 mg/dl (8.6-10.3); Carbon Dioxide 21.0 mmol/L (21-32); Chloride 100.0 mmol/L (98-107); Creatinine Clr Calc Pharmacy 73.2 ml/min; Globulin 2.2 gm/dl (2.5-4.0); Glucose 195.0 mg/dl (70-99(Fasting)); Potassium 3.4 mmol/L (3.5-5.1); Sodium 131.0 mmol/L (136-145); Total Protein 5.3 gm/dl (6.0-8.3)
[2025-01-24] MEDS ORDERED: ALBUTEROL HFA 8 GM INHALER INH PRN (15:33)
[2025-01-24] MEDS ORDERED: MELATONIN 3 MG TAB PO PRN (15:33)
[2025-01-24] MEDS ORDERED: MAGNESIUM HYDROXIDE SUSP 30 ML UDC PO PRN (15:33)
[2025-01-24] MEDS ORDERED: POLYETHYLENE (MIRALAX) 17 GM PACK PO PRN (15:33)
[2025-01-24] MEDS ORDERED: ALUMINUM/MAGNESIUM SUSP 30 ML UDC PO PRN (15:33)
[2025-01-24] MEDS: LACTATED RINGER'S 1,000 ML IV SCH (15:54)
[2025-01-24] MEDS: DOXYCYCLINE HYCLATE 100 MG in DEXTROSE 5% MINI-B 100 ML IV SCH (20:49)
[2025-01-24] MEDS: FAMOTIDINE 20MG IV PUSH 20 MG/5 ML SYR IV SCH (22:47)
[2025-01-24] MEDS: ACETAMINOPHEN 325 MG TAB PO PRN (23:58)
[2025-01-25 07:22] LABS: Alanine Aminotransferase 53.0 U/L (7-52); Albumin Globulin Ratio 1.4 (0.9-2); Alkaline Phosphatase 70.0 U/L (34-104); Anion Gap 5.0 (3-11); Bilirubin,Total 3.1 mg/dl (0.2-1.0); Blood Urea Nitrogen 12.0 mg/dl (6-23); Calcium 7.7 mg/dl (8.6-10.3); Carbon Dioxide 26.0 mmol/L (21-32); Chloride 105.0 mmol/L (98-107); Creatinine Clr Calc Pharmacy 103.1 ml/min; Globulin 1.8 gm/dl (2.5-4.0); Glucose 83.0 mg/dl (70-99(Fasting)); Potassium 2.9 mmol/L (3.5-5.1); Sodium 136.0 mmol/L (136-145); Total Protein 4.4 gm/dl (6.0-8.3)
--- NOTE | 2025-01-25 07:28 | Hospitalist Progress Note ---
Date of Service January 25, 2025 Assessment & Plan (1) Anaplasmosis: (2) Hypokalemia: (3) Lymphocytic colitis: Plan Consuelo is a 59yo F with PMHx well-controlled DM2, HTN, HLD, current smoking, and lymphocytic colitis here with weakness, abdominal pain, nausea/vomiting since 01/21, found to be positive for anaplasma in ER 01/24/25. Requires continued admission for vital sign monitoring and trending of abnormal labs. #Anaplasmosis - continue doxycycline 100 mg IV q12h Switched to PO starting PM dose today 01/25 To continue for total of 10 days, i.e. last day will be Friday 02/02 - IV fluids/IV antiemetics/supportive care continued while inpatient - discharge once feeling better, eating and drinking well enough to go home #Thrombocytopenia, elevated bilirubin, transaminitis Consistent with acute anaplasmosis downtrending Trend with CBC, CMP qAM #Hypokalemia 2.9 -> given 40meq KCl - initial BMP recheck timed for 1500 if going home, but if willing to stay another day for monitoring and getting closer to baseline PO intake, will obtain in AM #Abnormal CT scan - consistent with mild acute diverticulitis, however, her history/symptoms, and physical exam are not - watchful waiting for now: follow sx and serial exams potentially false positive scan but if pain localizes to LLQ, initiate broader abx coverage BERTIN - Given prior episodes of diverticulitis as well as her hx of lymphocytic colitis and current dehydration, she has several reasons for a false positive CT scan #Lymphocytic colitis, chronic continue budesonide #DVT prophylaxisambulation and SCDs (considered pharmacologic, with platelets of 77 it is an option, but at the same time hopefully she will be ambulatory enough, and is young enough, that pharmacologic may not be necessaryobviously follow her clinical course and readjust the plan as necessary) Admission and Anticipated Discharge Date Admission Date: January 24, 2025 Supervising Physician Co-Signing Physician Notes I personally examined the patient and verified all lucas points of history and exam, discussed case, and agree with decision making with Dr Meza Feeling a lot better. Belly pain is gone. Eating pretty well. Feeling more energy. Voiding a lot but notes it is really just because she feels like she is better hydrated. No dysuria. Vitals noted, in general she is awake and alert pleasant no distress. HEENT normocephalic atraumatic mucous membranes moist. Breathing unlabored no accessory muscle use good effort. Skin without rashes pallor or icterus. Abdomen is soft nondistended nontender no masses or organomegaly. Anaplasmosisimproving. Continue doxycycline abnormal CT scanher history, physical, and progress are inconsistent with diverticulitisno specific treatment needed otherwise as above Isaak Cordero was seen and evaluated at bedside this AM, endorses feeling better than day prior. She notes she has been up to use the bathroom, no issue walking but was not able to have a BM though she felt like she had stool to pass. Ate some dinner last night and most of breakfast this AM. Denies any specific abdominal pain, denies any obvious bleeding nor lightheadedness or dizziness. Review of Systems Review of Systems: per HPI Physical Exam Physical Exam: Gen: A&Ox3, no acute distress, very pleasant and cooperative HEENT: EOM intact, anicteric sclerae, PERRL b/l CV: RRR, +s1/s2, no m/r/g Resp: clear to auscultation b/l, no w/r/R GI/Abd: normoactive BS, abdomen soft, nondistended, nontender to palpation MSK: 5/5 strength in b/l UE and LE Neuro: no facial droop, speech intact, no focal deficits, steady gait observed Psych: mood-affect congruence, good eye contact Results & Data Results & Data Vital Signs (Past 12 Hours) Vital Signs Temp Pulse Resp BP Pulse Ox O2 Del Method 01/24/25 19:43 37.0 C 100 H 18 105/62 98 Room Air Resident Activity Tracking Resident Involvement: Resident Care Provided Care Provided: Adult Hospital Medicine
[2025-01-25 07:34] LABS: Hematocrit (blood only) 34.4 % (37.0-47.0); Hemoglobin 11.9 g/dl (12.0-16.0); Mean Corpuscular Hemoglobin 34.0 pg (25.0-34.0); Mean Corpuscular Volume 98.3 fL (80.0-100.0); Platelet Count 41 K/uL (130-400); RDW Standard Deviation 48.0 fL (36.4-46.3); Red Blood Count 3.50 M/uL (4.20-5.40); White Blood Count 4.17 K/ul (4.8-10.8)
[2025-01-25 07:37] LABS: Immature Granulocytes # (auto) 0.05 K/uL (0.01-0.20); Immature Granulocytes % (auto) 1.2 %
[2025-01-25] MEDS: CHOLECALCIFEROL 25 MCG (1000 UNITS) TAB PO SCH (08:23)
[2025-01-25] MEDS: CALCIUM 600MG + VIT D 400 IU TAB PO SCH (08:23)
[2025-01-25] MEDS: BUDESONIDE EC 3 MG CAP PO SCH (08:23)
[2025-01-25 08:44] LABS: Polychromasia 1+; Toxic Vacuolation 2+
[2025-01-25] MEDS: POTASSIUM CHLORIDE 10 MEQ TABCR PO STA (09:10)
[2025-01-25] MEDS: POLYETHYLENE (MIRALAX) 17 GM PACK PO SCH (12:55)
[2025-01-25 15:04] VITALS: O2SAT 97
--- NOTE | 2025-01-25 16:49 | Billing Data ---
Date of Service January 25, 2025 Coding Level of Care Code 12845 SUB INP/OBS CARE MIN
[2025-01-25 20:02] VITALS: RESP 18
[2025-01-25] MEDS: DOXYCYCLINE HYCLATE 100 MG CAP PO SCH (20:40)
[2025-01-26 07:01] VITALS: BP 160/92; PULSE 83; TEMP 97.9
[2025-01-26 07:30] LABS: Hematocrit (blood only) 37.8 % (37.0-47.0); Hemoglobin 12.7 g/dl (12.0-16.0); Mean Corpuscular Hemoglobin 33.1 pg (25.0-34.0); Mean Corpuscular Volume 98.4 fL (80.0-100.0); Platelet Count 37 K/uL (130-400); RDW Standard Deviation 48.5 fL (36.4-46.3); Red Blood Count 3.84 M/uL (4.20-5.40); White Blood Count 5.18 K/ul (4.8-10.8)
[2025-01-26 07:53] LABS: Anion Gap 7.0 (3-11); Blood Urea Nitrogen 9.0 mg/dl (6-23); Calcium 8.3 mg/dl (8.6-10.3); Carbon Dioxide 26.0 mmol/L (21-32); Chloride 104.0 mmol/L (98-107); Creatinine Clr Calc Pharmacy 107.3 ml/min; Glucose 150.0 mg/dl (70-99(Fasting)); Potassium 3.2 mmol/L (3.5-5.1); Sodium 137.0 mmol/L (136-145)
[2025-01-26] MEDS: ONDANSETRON INJ 2 MG/ML 2 ML VIAL IV PRN (08:56)
[2025-01-26] MEDS: POTASSIUM CHLORIDE 10 MEQ TABCR PO ONE (09:42)
--- NOTE | 2025-01-26 10:03 | Discharge Summary ---
Date of Service January 26, 2025 Admission HPI Per Admitting Provider Patient is a very pleasant 59-year-old female who notes that on Monday she started feeling fairly sickover the last few days it has progressed to feeling sick and very weak all over like she can barely get up, as well as a lot of nausea vomiting poor p.o. intake and diffuse abdominal pain. She initially thought she probably had some sort of viral illness and was trying to wait it out at home, but as she continued to feel worse she felt to overt need to be evaluatedcame to the ER and was found to have lab findings quite consistent with anaplasmosis, including a positive peripheral smear. She also had a CT of her abdomen and pelvis that showed findings potentially consistent with mild diverticulitis, but she does not have the same sort of left flank pain that she has had with prior episodes of diverticulitis. Admission Exam Per Admitting Provider In general she is awake alert oriented fatigued but pleasant and in no acute distress. HEENT normocephalic atraumatic mucous membranes moist. Cardio is slightly tachycardic without rubs murmurs or gallops. Lungs are clear slightly diminished no rales rhonchi or wheezes. Abdomen soft moderately distended mild to moderate diffuse tenderness with no real focal area no guarding rebound or rigidity. Definitely no dominance of left lower quadrant tenderness. Extremities are without sinus clubbing or edema, mild muscular calf tenderness equal bilaterally with no edema, cords, or focal tenderness. Neuro shows cranial nerves II through XII be grossly intact gross motor and sensory intact. Principal Diagnosis anaplasmosis Discharge Exam Gen: A&Ox3, no acute distress, very pleasant and cooperative HEENT: EOM intact, anicteric sclerae, PERRL b/l CV: RRR, +s1/s2, no m/r/g Resp: clear to auscultation b/l, no w/r/R GI/Abd: normoactive BS, abdomen soft, nondistended, nontender to palpation MSK: 5/5 strength in b/l UE and LE Neuro: no facial droop, speech intact, no focal deficits, steady gait observed Psych: mood-affect congruence, good eye contact Discharge Data Allergies Allergy/AdvReac Type Severity Reaction Status Date / Time anti nausea medication Allergy "made me Uncoded 09/27/24 09:50 more sick" dry heaves, vomiting Consultations 01/24/25 14:27 ED Decision to Admit Stat Ordered Studies 01/24/25 11:36 CT abd pelvis IV con only Stat Hospital Course (1) Anaplasmosis: (2) Hypokalemia: (3) Lymphocytic colitis: Karma Cordero is a 59yo F with PMHx well-controlled DM2, HTN, HLD, current smoking, and lymphocytic colitis here with weakness, abdominal pain, nausea/vomiting since 01/21, found to be positive for anaplasma in ER 01/24/25. Requires continued admission for vital sign monitoring and trending of abnormal labs. #Anaplasmosis - continue doxycycline 100 mg IV q12h Switched to PO starting PM dose today 01/25 To continue for total of 10 days, i.e. last day will be Friday 02/02 - IV fluids/IV antiemetics/supportive care continued while inpatient - discharge once feeling better, eating and drinking well enough to go home #Thrombocytopenia, elevated bilirubin, transaminitis Consistent with acute anaplasmosis Platelets very slight downtrending 41 -> 37, obtain CBC outpatient with PCP Liver enzymes downtrending, obtain CMP outpatient with PCP #Hypokalemia 2.9 -> 3.2, given additional 40meq KCl #Abnormal CT scan - consistent with mild acute diverticulitis, however, her history/symptoms, and physical exam are not - watchful waiting for now: follow sx and serial exams potentially false positive scan but if pain localizes to LLQ, initiate broader abx coverage BERTIN - Given prior episodes of diverticulitis as well as her hx of lymphocytic colitis and current dehydration, she has several reasons for a false positive CT scan #Lymphocytic colitis, chronic continue budesonide Total Time Total Time Spent Total Time Spent (In Minutes): <30 Discharge Plan Discharge Items Patient Disposition: Home - Self-Care Reason For Visit: ANAPLASMOSIS Discharge Diagnosis: anaplasmosis Condition on Discharge: Fair Activity: Per Instructions section Non-emergency contact: Primary Care Provider Call non-emergency contact if: your symptoms worsen and your pain is not controlled Follow-up/Referrals: Sebastián Richardson DO [Primary Care Provider] - Diet: Regular Addtl Attending Provider Instructions: You came in with increasing weakness, abdominal pain, nausea/vomiting since 01/21, found to be positive for anaplasma in ER 01/24/25. We feel comfortable with your discharge today due to clinical improvement being on the appropriate antibiotic, which we advise you to continue taking twice daily through Friday 02/02 to complete the 10-day course. Follow up with your PCP within a week. #Anaplasmosis - continue doxycycline 100 mg twice daily for total of 10 days, i.e. last day will be Friday 02/02 You received your AM dose in the hospital before discharge, so please just take PM dose this evening 01/26/25, and then twice daily through 02/02 - eating and drinking has been improving, continue at home #Thrombocytopenia, elevated bilirubin, transaminitis Consistent with acute anaplasmosis Platelets very slight downtrending 41 -> 37; hemoglobin stable; obtain CBC outpatient with PCP Liver enzymes downtrending, obtain CMP outpatient with PCP #Hypokalemia (low potassium) 2.9 -> 3.2, given additional 40meq KCl - consider supplementation as outpatient, discuss with PCP #Abnormal CT scan - consistent with mild acute diverticulitis, however, her history/symptoms, and physical exam are not - Given prior episodes of diverticulitis as well as her hx of lymphocytic colitis and current dehydration, she has several reasons for a false positive CT scan #Lymphocytic colitis, chronic continue budesonide Pending Studies at Discharge: No Stand-Alone Forms: My [facility] [employer] Smoking Cessation Medications and DC Order Prescriptions: New doxycycline hyclate 100 mg capsule 100 mg PO BID 8 Days Qty: 15 0RF Continued budesonide 3 mg capsule,delayed,extend.release 9 mg PO DAILY Qty: 90 5RF potassium citrate 99 mg capsule 99 mg PO DAILY Qty: 30 0RF vitamin E (dl, acetate) 180 mg (400 unit) capsule 360 mg PO DAILY Qty: 30 0RF beta carotene 30 mg capsule 30 mg PO DAILY Qty: 30 0RF amoxicillin 500 mg capsule 2,000 mg PO ONCE PRN (Reason: dental appt) Rx Instructions: prior to dentist appt cholecalciferol (vitamin D3) 50 mcg (2,000 unit) capsule 2,000 unit PO DAILY albuterol sulfate 90 mcg/actuation HFA aerosol inhaler 2 puff inhalation QID PRN (Reason: shortness of breath or wheezing) Qty: 8.5 0RF calcium carbonate-vitamin D3 600 mg-5 mcg (200 unit) Tablet 1 tab PO QAM Primal Mind Fuel 1 dose PO QAM hydrochlorothiazide 25 mg tablet 25 mg PO DAILY Rx Instructions: TAKE 1 TABLET BY MOUTH DAILY IN THE MORNING Discharge Orders: Discharge Order (Routine); Ordered 01/26/25 Ordered By: Jero Leung/Other Patient Handouts: Anaplasmosis, ED Tick Facts Admission Data Admit Date/Time: 01/24/25 14:30 Attending Provider: Kenneth Muhammad Admit Provider: Kenneth Muhammad Primary Care Provider: Sebastián Richardson Other Providers: Jesús Soto Other Interventions: Discharge Summary Assessment (RN) Last Done: 01/26/25 10:45 Supervising Physician Co-Signing Physician Notes I personally examined the patient and verified all lucas points of history and exam, discussed case, and agree with decision making with Dr Meza feels good, doing well. Would like to go home. Vitals noted, in general she is awake and alert pleasant no distress. HEENT normocephalic atraumatic mucous membranes moist. Breathing unlabored no accessory muscle use good effort. Skin without rashes pallor or icterus. Ambulating in the room with no distress Anaplasmosisimproving. Continue doxycycline for 10 days, discussed prevention for sun sensitivity or esophagitis. We discussed outpatient CBC, CMP until labs normalize abnormal CT scanher history, physical, and progress are inconsistent with diverticulitisno specific treatment needed, I doubt she ever had diverticulitis this admission otherwise as above Resident Activity Tracking Resident Involvement: Resident Care Provided Care Provided: Adult Hospital Medicine
--- NOTE | 2025-01-26 13:25 | Billing Data ---
Date of Service January 26, 2025 Coding Level of Care Code 70678 IN/OBS DISCH 30 MIN/LESS
--- NOTE | 2025-01-26 14:10 | Electrocardiogram Report ---
Test Reason : Blood Pressure : */* mmHG Vent. Rate : 123 BPM Atrial Rate : 123 BPM P-R Int : 120 ms QRS Dur : 78 ms QT Int : 338 ms P-R-T Axes : 49 55 27 degrees QTcB Int : 483 ms Sinus tachycardia Otherwise normal ECG No previous ECGs available Confirmed by Julián Zelaya ([id number]) on 01/26/2025 2:10:32 PM Referred By: REFERRED SELF Confirmed By: Julián Zelaya
== END 2025-01-26 12:22 | disposition home or self-care (01) | DRG 869 ==
LOC: ED 10:13 → 3N 14:30